=== PATIENT | female | born 1995 | race Caucasian/White ===

== ENCOUNTER 2023-05-18 05:46 | Inpatient (IN) ==
[2023-05-18] MEDS ORDERED: Lidocaine 1% VIAL 10 MG/ML 30 ML VIAL INJ PRN (06:41)
[2023-05-18 07:12] LABS: ABS Basophils 0.2 10^3/uL (0.0-0.1); ABS Eosinophils 0.1 10^3/uL (0.0-0.5); ABS Lymphocytes 1.8 10^3/uL (1.0-4.8); ABS Monocytes 0.8 10^3/uL (0.0-0.9); ABS Neutrophils 9.3 10^3/uL (1.5-7.6); Eosinophil % 0.9 %; Hematocrit 39.1 % (35-45); Hemoglobin 13.3 g/dL (11.5-14.3); Lymphocyte % 14.9 %; Mean Corpuscular Hemoglobin 30.6 pg (27-33); Mean Platelet Volume 9.6 fL (7.5-11.2); Platelet Count 211 10^3/uL (150-450); Red Blood Count 4.34 10^6/uL (3.63-4.92); Red Cell Distribution Width 15.1 % (12-17); White Blood Count 12.2 10^3/uL (3.8-11.8)
[2023-05-18 07:30] LABS: Urine Benzodiazepine Screen None Detected (None Detect); Urine Opiates Screen None Detected (None Detect)
[2023-05-18] MEDS: Lactated Ringers 1000 ml BAG 1,000 ML IV ONE ×2 (07:30→18:12)
[2023-05-18] MEDS: Lactated Ringers 1000 ml BAG 1,000 ML IV SCH ×2 (08:00→18:11)
[2023-05-18] MEDS ORDERED: OBEPIDURAL (200 ML) 200 ML EPIDURAL ONE (08:32)
[2023-05-18] MEDS: OBEPIDURAL (200 ML) 200 ML EPIDURAL SCH (10:00)
[2023-05-18] MEDS ORDERED: Lactated Ringers 1000 ml BAG 500 ML IV PRN ×2 (10:02)
[2023-05-18] MEDS ORDERED: Phenylephrine 40 mcg/mL 10mL (400mcg) SYRINGE IV PUSH PRN ×2 (10:02)
[2023-05-18] MEDS ORDERED: Sodium Citrate/Citric Acid LIQ 15 ML UDC PO PRN (10:02)
[2023-05-18] MEDS ORDERED: Ondansetron 4 mg VIAL 2 MG/ML 2 ml VIAL IV ONE (11:44)
[2023-05-18] MEDS: Oxytocin in LR 20,000 MILLI.UNIT/1,000 ML BAG IV SCH ×2 (13:03→17:00)
[2023-05-18] MEDS: Famotidine IV 10 MG/ML 2 ml VIAL (20 mg) IV SLOW PU ONE (13:03)
[2023-05-18] MEDS ORDERED: Sterile Water for Inj 10 ML ONE (14:41)
[2023-05-18] MEDS ORDERED: Phenylephrine 40 mcg/mL 10mL (400mcg) SYRINGE ONE ×3 (14:42→15:28)
[2023-05-18] MEDS ORDERED: Oxytocin 10 UNITS/ML 1 ML VIAL ONE (14:43)
[2023-05-18] MEDS ORDERED: Ondansetron 4 mg VIAL 2 MG/ML 2 ml VIAL IV PRN (14:57)
[2023-05-18] MEDS ORDERED: Naloxone 0.4 mg VIAL 0.4 mg/ml 1 ml VIAL IV PUSH PRN (14:57)
[2023-05-18] MEDS ORDERED: Metoclopramide 5 MG/ML VIAL (10 mg) IV PRN (14:57)
[2023-05-18] MEDS: ceFOXitin 2 GM IVPREMIX 2 GM/50 ML BAG IVPB ONE (15:00)
[2023-05-18] MEDS: Azithromycin 500 mg/250 mL NS IVPB ONE (15:00)
[2023-05-18] MEDS ORDERED: Bupivacaine 0.5% SDV PF 30ML VIAL ONE (15:10)
[2023-05-18] MEDS ORDERED: Glycerin ADULT 2.4 gm SUPP PR PRN (16:22)
[2023-05-18] MEDS ORDERED: Witch Hazel PAD JAR TOPICAL PRN (16:22)
[2023-05-18] MEDS ORDERED: Lactated Ringers 1000 ml BAG 1,000 ML IV SCH (17:00)
[2023-05-18] MEDS: Buffered Lidocaine 1% SYRIN 1 ml INTRADERM ONE ×2 (17:31→17:53)
[2023-05-18] MEDS: ceFAZolin 2 GM PREMIX 0 GM/0 ML BAG ONE (17:53)
[2023-05-18] MEDS: Metoclopramide 5 MG/ML VIAL (10 mg) IV SLOW PU ONE (18:04)
[2023-05-18] MEDS: Acetaminophen IV 1 GM/100ML 1,000 MG/100 ML BAG IV PRN (18:05)
[2023-05-18] MEDS: Metoclopramide 5 MG/ML VIAL (10 mg) ONE (18:06)
[2023-05-18] MEDS: Lidocaine 1.5% EPI 1:200,000 30 ML SDV ONE (18:07)
[2023-05-18] MEDS: ceFOXitin 2 GM IVPREMIX 2 GM/50 ML BAG ONE (18:07)
[2023-05-19 07:34] LABS: ABS Basophils 0.1 10^3/uL (0.0-0.1); ABS Lymphocytes 2.3 10^3/uL (1.0-4.8); ABS Neutrophils 9.8 10^3/uL (1.5-7.6); Eosinophil % 0.3 %; Hematocrit 32.5 % (35-45); Hemoglobin 11.2 g/dL (11.5-14.3); Lymphocyte % 17.4 %; Mean Corpuscular Hemoglobin 30.7 pg (27-33); Mean Corpuscular Hgb Conc 34.5 g/dL (31-36); Mean Platelet Volume 9.6 fL (7.5-11.2); Platelet Count 172 10^3/uL (150-450); Red Blood Count 3.65 10^6/uL (3.63-4.92); Red Cell Distribution Width 14.8 % (12-17); White Blood Count 13.2 10^3/uL (3.8-11.8)
[2023-05-19] MEDS: RHO D Immune Globulin (HUMAN) 300 MCG = 1,500 I.U. INJ IM PRN (14:47)
[2023-05-20] MEDS: Varicella Virus Vaccine Live 0.5 ML VIAL SUBCUT ONE (15:09)
[2023-05-20] MEDS: Measles, Mumps,Rubella VACC 0.5 ML/VIAL SUBCUT ONE (15:10)
[2023-05-20] MEDS: Lactated Ringers 1000 ml BAG 1,000 ML IV SCH (16:13)
[2023-05-21 12:52] VITALS: BP 123/75
== END 2023-05-21 12:35 | disposition home or self-care (01) | DRG 540 ==
LOC: MCHOBOUT 05:46 → MCHOB 06:36
PROVIDERS: ADMIT Registered Nurse; ATTEND Obstetrics & Gynecology